=== PATIENT | male | born 1975 | race African-American/Black ===

== ENCOUNTER 2023-01-27 15:32 | Inpatient (IN) | payer OTHER ==
[~2023-01-27] VITALS: Ht 175.3 cm; Wt 90.0 kg
[2023-01-27] MEDS ORDERED: DexAMETHasone SOD PHOS 10MG/1ML VIAL INJ IV ONE (18:15)
[2023-01-27] MEDS ORDERED: KETOROLAC TROMETH 30 MG/ML 1ML VIAL IV ONE (18:15)
[2023-01-27] MEDS ORDERED: HYDROmorphone HCL 2 MG/ML VL/or syr IV ONE ×2 (18:15→21:15)
[2023-01-27] MEDS: CYCLOBENZAPRINE HCL 10 MG TAB PO SCH (22:53)
[2023-01-28] MEDS: OXYCODONE W/ ACETAMINOPHEN 5/325MG TABLET PO PRN ×4 (04:47→21:03)
[2023-01-28] MEDS: CYCLOBENZAPRINE HCL 10 MG TAB PO SCH ×3 (06:17→22:45)
[2023-01-28 08:07] LABS: Albumin 3.9 g/dL (3.4-5.0); Calcium 8.5 mg/dL (8.5-10.1); Phosphorus 2.7 mg/dL (2.5-4.90); Potassium 4.2 mmol/L (3.5-5.1)
[2023-01-28 09:00] VITALS: BP 121/77
[2023-01-28] MEDS ORDERED: LOSA25TA15 PO (09:21)
[2023-01-28] MEDS: ENOXAPARIN SOD 40 MG/0.4 ML SYRINGE SC SCH (09:56)
[2023-01-28] MEDS: LOSARTAN POTASSIUM 50 MG TAB PO SCH (09:56)
[2023-01-28] MEDS: PANTOPRAZOLE 40 MG TAB PO SCH (09:56)
[2023-01-28] MEDS: NAPROXEN 500 MG TAB PO SCH ×2 (09:57→21:02)
[2023-01-28] MEDS ORDERED: methylPREDNISolone SOD SUCC 125 MG/2 ML VL IV SCH (10:00)
[2023-01-28 13:12] VITALS: BP 131/89
[2023-01-28 17:00] VITALS: BP 126/84
[2023-01-28] MEDS: DexAMETHasone SOD PHOS 10MG/1ML VIAL INJ IV SCH (21:02)
[2023-01-28 22:00] VITALS: BP 112/69
[2023-01-29 05:00] VITALS: BP 113/56
[2023-01-29] MEDS: CYCLOBENZAPRINE HCL 10 MG TAB PO SCH ×2 (05:34→21:30)
[2023-01-29 09:00] VITALS: BP 123/64
[2023-01-29] MEDS: PANTOPRAZOLE 40 MG TAB PO SCH (09:53)
[2023-01-29] MEDS: NAPROXEN 500 MG TAB PO SCH ×2 (09:53→21:30)
[2023-01-29] MEDS: OXYCODONE W/ ACETAMINOPHEN 5/325MG TABLET PO PRN (09:53)
[2023-01-29] MEDS: ENOXAPARIN SOD 40 MG/0.4 ML SYRINGE SC SCH (09:54)
[2023-01-29] MEDS: DexAMETHasone SOD PHOS 10MG/1ML VIAL INJ IV SCH ×2 (09:54→12:15)
[2023-01-29] MEDS: LOSARTAN POTASSIUM 50 MG TAB PO SCH (09:55)
[2023-01-29] MEDS ORDERED: HYDROcodone-ACET 10/325MG TAB PO PRN (12:15)
[2023-01-29 13:00] VITALS: BP_SYST 127; BP_SYST 130; BP_DIAS 82; BP_DIAS 84
[2023-01-29] MEDS: HYDROcodone-ACET 10/325MG TAB PO PRN (14:49)
[2023-01-29 17:00] VITALS: BP 125/71
[2023-01-29 22:00] VITALS: BP 119/67
[2023-01-30 05:00] VITALS: BP 112/97
[2023-01-30] MEDS: HYDROcodone-ACET 10/325MG TAB PO PRN ×2 (08:31→15:08)
[2023-01-30 09:00] VITALS: BP 120/66
[2023-01-30] MEDS: PANTOPRAZOLE 40 MG TAB PO SCH (10:34)
[2023-01-30] MEDS: ENOXAPARIN SOD 40 MG/0.4 ML SYRINGE SC SCH (10:35)
[2023-01-30] MEDS: NAPROXEN 500 MG TAB PO SCH ×2 (10:35→21:37)
[2023-01-30] MEDS: CYCLOBENZAPRINE HCL 10 MG TAB PO SCH ×3 (10:35→21:37)
[2023-01-30] MEDS: DexAMETHasone SOD PHOS 10MG/1ML VIAL INJ IV SCH ×2 (10:36→12:00)
[2023-01-30] MEDS: LOSARTAN POTASSIUM 50 MG TAB PO SCH (10:37)
[2023-01-30 13:00] VITALS: BP 127/75
[2023-01-30 17:00] VITALS: BP 128/81
[2023-01-30 22:00] VITALS: BP 124/61
[2023-01-31 05:00] VITALS: BP 110/67
[2023-01-31] MEDS: HYDROcodone-ACET 10/325MG TAB PO PRN (09:36)
[2023-01-31 09:41] VITALS: BP 120/80
[2023-01-31] MEDS: NAPROXEN 500 MG TAB PO SCH (10:20)
[2023-01-31] MEDS: LOSARTAN POTASSIUM 50 MG TAB PO SCH (10:20)
[2023-01-31] MEDS: DexAMETHasone SOD PHOS 10MG/1ML VIAL INJ IV SCH (10:21)
[2023-01-31] MEDS: PANTOPRAZOLE 40 MG TAB PO SCH (10:21)
[2023-01-31] MEDS: CYCLOBENZAPRINE HCL 10 MG TAB PO SCH (10:22)
[2023-01-31] MEDS: ENOXAPARIN SOD 40 MG/0.4 ML SYRINGE SC SCH (10:22)
[2023-01-31 13:39] VITALS: BP 129/77
[2023-01-31] MEDS ORDERED: PRED20TA2 PO (14:45)
[2023-01-31] MEDS ORDERED: NAP500T PO (14:45)
[2023-01-31 16:57] VITALS: BP 119/75
[2023-01-31 18:26] VITALS: BP 107/71
== END 2023-01-31 20:13 | DRG 552 ==
LOC: EEVIPCON 15:32 → EDBD 15:32 → ER 15:32 → OVERFLOW 21:52 → WEST WING 01-28 09:18
PROVIDERS: ADMIT Internal Medicine; ATTEND Internal Medicine
DX: M51.26 Other intervertebral disc displacement, lumbar region (principal); S39.012A Strain of muscle, fascia and tendon of lower back, initial encounter; M48.061 Spinal stenosis, lumbar region without neurogenic claudication; M54.30 Sciatica, unspecified side; I10 Essential (primary) hypertension; G89.29 Other chronic pain; X58.XXXA Exposure to other specified factors, initial encounter; Z88.0 Allergy status to penicillin; Z82.49 Family history of ischemic heart disease and other diseases of the circulatory system; Y92.89 Other specified places as the place of occurrence of the external cause; Y99.8 Other external cause status; V29.99XA Rider (driver) (passenger) of other motorcycle injured in unspecified traffic accident, initial encounter; Z79.899 Other long term (current) drug therapy; Y93.52 Activity, horseback riding
CPT/HCPCS: 36415; 72148; 80069; 85049; 96372; 96374; 96375; 96376; 97163; G0378; J1100; J1885